=== PATIENT | female | born 1945 | race Caucasian/White ===

== ENCOUNTER → 2018-05-21 17:00 | Outpatient (CLI) | payer MEDICARE, OTHER, SELFPAY ==
[2018-05-21 17:56] LABS: Add Manual Diff / Slide Review NO; Eosinophils Percent Auto 2.4 % (2-4); Hematocrit 41.2 % (36-46); Hemoglobin 14.1 g/dL (12.0-16.0); Mean Corpuscular HGB Conc 34.2 % (30-36); Mean Corpuscular Hemoglobin 29.8 PG (26-34); Mean Corpuscular Volume 87.1 fL (80-100); Monocytes Percent Auto 7.7 % (3-14); Neutrophils Absolute Auto 6000 /uL (3000-5900); Neutrophils Percent Auto 61.9 % (50-75); Platelet Count 240 X10^3/uL (150-400); Red Blood Cell Count 4.72 X10^6/uL (4.0-5.2); Red Cell Distribution Width 13.8 % (11.6-14.8); White Blood Cell Count 9.7 X10^3/uL (4.5-11.0)
[2018-05-21 18:11] LABS: Alanine Aminotransferase 25 IU/L (9-52); Albumin 4.6 g/dL (3.5-5.0); Albumin Globulin Ratio 1.8 (1.0-2.8); Alkaline Phosphatase 80 U/L (38-126); Aspartate Aminotransferase 31 IU/L (14-36); Bilirubin Total 0.5 mg/dL (0.2-1.3); Blood Urea Nitrogen 14 mg/dL (7-17); Calcium 9.6 mg/dL (8.4-10.2); Carbon Dioxide 30 mmol/L (22-32); Chloride 103 mmol/L (98-107); Cholesterol 182 mg/dL (140-199); Estimated Glomerular Filt Rate > 60.0 mL/min (>60); Globulin 2.6 g/dL (1.7-4.1); Glucose 135 mg/dL (80-110); HDL Cholesterol 47 mg/dL (40-60); HEMOLYSIS < 15 (0-50); LDL Cholesterol Calculated 89 mg/dL (<100); Potassium 3.6 mmol/L (3.4-5.1); Sodium 145 mmol/L (137-145); Total Protein 7.2 g/dL (6.3-8.2); Triglycerides 228 mg/dL (35-150); Uric Acid 7.2 mg/dL (2.5-6.2)
[2018-05-21 18:40] LABS: Thyroid Stimulating Hormone 2.19 uIU/mL (0.47-4.68)
== END ==
PROVIDERS: Family Provider Internal Medicine; PCP Internal Medicine; Visit Provider Internal Medicine
DX: I10 Essential (primary) hypertension (principal); M79.673 Pain in unspecified foot
CPT/HCPCS: 36415; 80053; 80061; 84443; 84550; 85025

== ENCOUNTER → 2018-06-07 11:15 | Outpatient (CLI) | payer MEDICARE, OTHER, SELFPAY ==
[2018-06-07 12:04] LABS: Add Manual Diff / Slide Review NO; Basophils Percent Auto 0.9 % (0-2); Eosinophils Percent Auto 2.8 % (2-4); Hematocrit 40.6 % (36-46); Hemoglobin 14.1 g/dL (12.0-16.0); Lymphocytes Percent Auto 22.3 % (25-40); Mean Corpuscular HGB Conc 34.7 % (30-36); Mean Corpuscular Hemoglobin 29.8 PG (26-34); Mean Corpuscular Volume 85.8 fL (80-100); Monocytes Percent Auto 7.9 % (3-14); Neutrophils Absolute Auto 5900 /uL (3000-5900); Neutrophils Percent Auto 66.1 % (50-75); Platelet Count 238 X10^3/uL (150-400); Red Blood Cell Count 4.73 X10^6/uL (4.0-5.2); Red Cell Distribution Width 13.8 % (11.6-14.8); White Blood Cell Count 8.9 X10^3/uL (4.5-11.0)
[2018-06-07 12:17] LABS: Alanine Aminotransferase 36 IU/L (9-52); Albumin 4.7 g/dL (3.5-5.0); Albumin Globulin Ratio 1.9 (1.0-2.8); Alkaline Phosphatase 81 U/L (38-126); Aspartate Aminotransferase 33 IU/L (14-36); BUN Creatinine Ratio 17.5 (6-22); Bilirubin Total 0.7 mg/dL (0.2-1.3); Blood Urea Nitrogen 14 mg/dL (7-17); Calcium 9.8 mg/dL (8.4-10.2); Carbon Dioxide 32 mmol/L (22-32); Chloride 100 mmol/L (98-107); Cholesterol 196 mg/dL (140-199); Estimated Glomerular Filt Rate > 60.0 mL/min (>60); Globulin 2.5 g/dL (1.7-4.1); Glucose 107 mg/dL (80-110); HDL Cholesterol 49 mg/dL (40-60); HEMOLYSIS < 15 (0-50); LDL Cholesterol Calculated 112 mg/dL (<100); Potassium 3.5 mmol/L (3.4-5.1); Sodium 144 mmol/L (137-145); Total Protein 7.2 g/dL (6.3-8.2); Triglycerides 174 mg/dL (35-150)
[2018-06-07 12:46] LABS: Thyroid Stimulating Hormone 2.09 uIU/mL (0.47-4.68)
== END ==
PROVIDERS: Family Provider Internal Medicine; PCP Internal Medicine; Visit Provider Internal Medicine
DX: I10 Essential (primary) hypertension (principal)
CPT/HCPCS: 36415; 80053; 80061; 84443; 85025

== ENCOUNTER → 2019-08-10 14:18 | Outpatient (CLI) | payer MEDICARE, OTHER, SELFPAY ==
--- NOTE | 2019-08-10 | DI.US.S_ITS ---
PROCEDURE: US CAROTID DOPPLER BI INDICATIONS: RIGHT CAROTID BRUIT TECHNIQUE: Color and pulse Doppler interrogation was performed of both carotid systems, with image documentation and velocity measurements. COMPARISON: None. FINDINGS: Stenosis calculations are based on SRU (Society of Radiologists in Ultrasound) criteria. Right side: Brachial blood pressure: 150/81 mm Hg. Common carotid artery peak systolic velocity: 83 cm/sec. Internal carotid artery peak systolic velocity: 59 cm/sec. Internal carotid artery end diastolic velocity: 27 cm/sec. External carotid artery peak systolic velocity: 94 cm/sec. ICA/CCA peak systolic ratio: 0.7. Boland scale imaging description: Mild scattered plaque Percent internal carotid artery stenosis: Less than 50%. Vertebral artery: Flow direction is antegrade. Left side: Brachial blood pressure: 166/85 mm Hg. Common carotid artery peak systolic velocity: 70 cm/sec. Internal carotid artery peak systolic velocity: 82 cm/sec. Internal carotid artery end diastolic velocity: 27 cm/sec. External carotid artery peak systolic velocity: 76 cm/sec. ICA/CCA peak systolic ratio: 1.2. Boland scale imaging description: Mild scattered plaque. Left thyroid nodules. Percent internal carotid artery stenosis: Less than 50% stenosis. Vertebral artery: Flow direction is antegrade. IMPRESSION: 1. Less than 50% bilateral internal carotid artery stenosis. 2. Incidental finding of multiple thyroid nodules. When clinically feasible, recommend formal thyroid ultrasound. Dictated by: Jairo MARLEY Interpreted: Dinh Khan MD on 08/10/2019 at 15:47 Approved by: Dinh Khan M.D. on 08/10/2019 at 16:54
--- NOTE | 2019-08-10 | DI.MG.S_ITS ---
BILATERAL DIGITAL SCREENING MAMMOGRAM 3D/2D WITH CAD: 08/10/2019 CLINICAL: Routine screening. Family history of breast cancer. Comparison is made to exams dated: 03/25/2017 mammogram - [facility], 03/17/2015 mammogram, and 10/11/2013 mammogram - [facility]. There are scattered fibroglandular elements in both breasts. Current study was also evaluated with a Computer Aided Detection (CAD) system. No significant masses, calcifications, or other findings are seen in either breast. There has been no significant interval change. IMPRESSION: NEGATIVE There is no mammographic evidence of malignancy. A 1 year screening mammogram is recommended. This exam was interpreted at Station ID: [id number]. NOTE: For mammograms, a report in lay terms will be sent to the patient. Approximately 15% of breast malignancies will not be visualized mammographically. In the management of a palpable breast mass, a negative mammogram must not discourage biopsy of a clinically suspicious lesion. Electronically Signed By: Darius kidd/pj:08/10/2019 15:59:03 letter sent: Normal Exam ACR BI-RADS Category 1: Negative [id number]
== END ==
PROVIDERS: PCP Internal Medicine; Visit Provider Internal Medicine
DX: Z12.31 Encounter for screening mammogram for malignant neoplasm of breast (principal); Z80.3 Family history of malignant neoplasm of breast; M85.851 Other specified disorders of bone density and structure, right thigh; Z78.0 Asymptomatic menopausal state
CPT/HCPCS: 77063; 77067; 77080; 93880

== ENCOUNTER → 2019-08-14 07:12 | Outpatient (CLI) | payer MEDICARE, OTHER, SELFPAY ==
--- NOTE | 2019-08-14 | DI.US.S_ITS ---
PROCEDURE: US THYROID INDICATIONS: NODULES TECHNIQUE: Real-time scanning was performed of the thyroid gland, with image documentation. COMPARISON: None. FINDINGS: Right: Thyroid lobe measures 4.1 x 1.5 x 1.4 cm, and is homogeneous in echotexture. Left: Thyroid lobe measures 4.9 x 1.1 x 1.4 cm, and is homogenous in echotexture. Isthmus: 2.9 mm thick. Nodule number: #1 Location: Midpole of left thyroid lobe Size: 1.4 x 0.7 x 1.1 cm. Composition: Solid Echogenicity: Hypoechoic Shape: Wider than tall Margins: Smooth Echogenic foci: None Total points: 4 ACR TI-RADS category: 4 Nodule number: #2 Location: Upper pole of left thyroid lobe Size: 0.6 x 0.4 x 0.7 cm. Composition: Solid Echogenicity: Hypoechoic Shape: Wider than tall. Margins: Smooth Echogenic foci: None Total points: 4 ACR TI-RADS category: 4 Nodule number: #3 Location: Upper to mid pole of right thyroid lobe Size: 0.9 x 0.6 x 1 cm. Composition: Solid Echogenicity: Hypoechoic Shape: Wider than tall. Margins: Smooth Echogenic foci: None Total points: 4 ACR TI-RADS category: 4 IMPRESSION: 3 moderately suspicious nodules in bilateral thyroid lobes as above. Sonographic followup is recommended. ACR TI-RADS definitions and recommendations: TI-RADS 1 (benign): 0 points. FNA not needed. TI-RADS 2 (not suspicious): 2 points. FNA not needed. TI-RADS 3 (mildly suspicious): 3 points. * FNA if 2.5 cm or larger, follow up if 1.5 cm or larger (at 1, 3, and 5 years). TI-RADS 4 (moderately suspicious): 4-6 points. * FNA if 1.5 cm or larger, follow up if 1 cm or larger (at 1, 2, 3, and 5 years). TI-RADS 5 (highly suspicious): 7 points or more. * FNA if 1 cm or larger, follow up if 0.5 cm or larger (every year for 5 years). Dictated by: Mike Miner M.D. on 08/14/2019 at 12:36 Approved by: Mike Miner M.D. on 08/14/2019 at 12:39
== END ==
PROVIDERS: PCP Internal Medicine; Visit Provider Family Medicine
DX: E04.2 Nontoxic multinodular goiter (principal)
CPT/HCPCS: 76536

== ENCOUNTER → 2019-10-29 08:21 | Outpatient (CLI) | payer MEDICARE, OTHER, SELFPAY ==
--- NOTE | 2019-10-29 | DI.NM.S_ITS ---
PROCEDURE: NM JESSE PERF SPECT REST & STR Rest and exercise myocardial perfusion SPECT with gated imaging and ejection fraction RADIOPHARMACEUTICAL: 26.4 mCi Tc-99m sestamibi IV at rest and 25.5 mCi Tc-99m sestamibi IV at peak exercise. A [id number] was performed. INDICATIONS: ELECTROCARDIOGRAM TECHNIQUE: Radiopharmaceutical was injected at peak stress test, and also at rest. SPECT images were obtained. SPECT myocardial perfusion images were displayed in short axis, horizontal long axis, and vertical long axis views. Gated images were reviewed using [employer] software. COMPARISON: None. CARDIAC STRESS: A standard Pj treadmill exercise tolerance test was performed by the patient under the supervision of an attending staff. The patient exercised for 5 minutes and 28 seconds; functional aerobic impairment (MARTIN) is 0%. Hemodynamic data: There is normal blood pressure and heart rate response to exercise stress. Patient achieved 111% of maximum predicted heart rate at peak exercise. Symptoms: Patient denied chest pain during exercise but developed dyspnea during stage II. EKG: Resting ECG with small Q waves in inferior and anterolateral leads. Up to 1.5 mm horizontal and down sloping ST depression in the same leads at peak exercise. Occasional PVCs in recovery. FINDINGS: Raw data: There is good myocardial labeling by radiotracer. No significant motion artifacts. Jvbi-qn-tdijk ratio is 0.37 (normal is less than 0.38 for sestamibi tracer, and less than 0.50 for thallium tracer). Left ventricle function: Gated images demonstrate normal left ventricle wall thickening. No segmental wall motion abnormality. No transient ischemic dilation; TID is 0.69 (normal less than 1.3). The left ventricle resting end-diastolic volume is 98 mL. Left ventricle stress ejection fraction is >75% ; normal values are above 45%. Myocardial perfusion: There is a very small, mild perfusion defect on apical anteroseptal wall on rest and stress that completely resolves on prone imaging. Otherwise normal distribution of activity in the left ventricular myocardium. No fixed or reversible perfusion defects. IMPRESSION: -Normal perfusion study with no evidence of ischemia or scar. -Average exercise capacity. -This is unchanged compared to the obtained records from [place]. -ECG findings were observed on the prior study as well. -Overall this is a low risk study. Dictated by: Cachorro Chua M.D. on 10/30/2019 at 17:32 Approved by: Cachorro Chua M.D. on 10/30/2019 at 17:46
== END ==
PROVIDERS: PCP Internal Medicine; Referring Provider Internal Medicine; Visit Provider Internal Medicine
DX: R94.31 Abnormal electrocardiogram [ECG] [EKG] (principal); I10 Essential (primary) hypertension
CPT/HCPCS: 78452; 93017; A9502

== ENCOUNTER → 2019-11-13 08:03 | Outpatient (CLI) | payer MEDICARE, OTHER, SELFPAY ==
--- NOTE | 2019-11-13 | DI.ECHO.S_ITS ---
[facility] +---------+ : : [address] : : : : [id number] : : : : Phone: [phone] Echocardiogram Report + + :Name: CHONG WONG Study Date: 11/13/2019 Height: 66 in : :[facility] Weight: 184 lb : : Gender: Female BSA: 1.9 m2 : :: 1945 Age: 74 yrs BP: 150/82 mmHg: :Reason For Study: ABNL EKG : : Performed By: Juno Recio : :Referring: KATHI SUAREZ : + + Interpretation Summary Sinus bradycardia. Heart rate is 49-58 bpm. Normal LV size, wall thickness, wall motion and LV systolic function. EF is 60-65%. Severe LA enlargement; otherwise normal chamber sizes. No significant valvular abnormalities. No prior study available for comparison. Procedure: A two-dimensional transthoracic echocardiogram with color flow and Doppler was performed. The study quality was technically adequate. There is no prior echocardiogram noted for this patient. The patient was in normal sinus rhythm during the exam. The patient was bradycardic with a heart rate of 49-58 beats per minute. Left Ventricle: The left ventricle is normal in size. Left ventricular wall thickness is borderline increased. The ejection fraction is estimated to be 60-65%. There are no focal wall motion abnormalities. Right Ventricle: The right ventricle is normal in size and function. Atria: The left atrium is severely dilated. Right atrial size is normal. The interatrial septum is intact with no evidence for an atrial septal defect. Mitral Valve: The mitral valve is normal in structure and function. There is trace mitral regurgitation. Aortic Valve: The aortic valve is trileaflet. The aortic valve opens well. No aortic regurgitation is present. Tricuspid Valve: The tricuspid valve is normal in structure and function. There is mild tricuspid regurgitation. The right ventricular systolic pressure is estimated to be at least 27 mmHg based on an estimated right atrial pressure of 3 mm Hg. Pulmonic Valve: The pulmonic valve is not well seen, but is grossly normal. There is mild pulmonic regurgitation. Great Vessels: The aortic root is normal size. The dimensions of the ascending aorta are normal. The pulmonary artery is normal size. The IVC is of normal diameter and collapses greater than 50% with a sniff. This suggests a low right atrial pressure of 3 mm Hg. Pericardium/ Pleura There is no pericardial effusion. There is no pleural effusion. MMode/2D Measurements & Calculations LVIDd: 4.2 cm LVOT diam: 2.1 cm LVIDs: 2.3 cm Ao root diam: 3.2 cm FS: 45.2 % Aortic Jxn: 2.9 cm EPSS: 0.23 cm asc Aorta Diam: 3.2 cm IVSd: 0.92 cm Ao Arch Diam (Prox Trans): 2.5 cm LVPWd: 0.83 cm LV aguayo. diameter/BSA (cm/m^2): 2.2 LV sys. diameter/BSA (cm/m^2): 1.2 LA dimension: 3.6 cm RA long axis: 5.0 cm LA A2 area: 27.6 cm2 RA area: 16.0 cm2 LA A4 area: 29.1 cm2 RA vol: 43.5 ml LA length (vol): 6.0 cm RA : 22.6 ml/m2 LA vol: 112.8 ml IVC diam: 2.0 cm LA vol index: 58.4 ml/m2 Doppler Measurements & Calculations Ao V2 max: 150.0 cm/sec LVOT Max Mathew: 130.2 cm/sec Ao V2 mean: 107.6 cm/sec LV V1 max P.8 mmHg Ao max P.0 mmHg LV V1 VTI: 29.2 cm Ao mean P.0 mmHg LUIZ(I,D): 2.6 cm2 Ao V2 VTI: 38.4 cm LUIZ(V,D): 3.0 cm2 sev ratio: 0.76 LUIZ indexed to BSA (cm^2/m^2): 1.4 MV E max mathew: 92.0 cm/sec TR max mathew: 242.7 cm/sec MV A max mathew: 45.8 cm/sec TR max P.6 mmHg MV E/A: 2.0 PA V2 max: 76.3 cm/sec Med Peak E' Mathew: 3.9 cm/sec PA V2 mean: 60.2 cm/sec E/E' med: 23.6 PA mean P.5 mmHg Lat Peak E' Mathew: 6.5 cm/sec PA pr(Accel): 19.8 mmHg E/E' lat: 14.1 E/e' average: 18.9 MV dec time: 0.13 sec SV(LVOT): 100.4 ml Electronically signed by: Eleanor Lin M.D. on Reading Physician:11/13/2019 10:41 PM
== END ==
PROVIDERS: PCP Internal Medicine; Referring Provider Internal Medicine; Visit Provider Internal Medicine
DX: I07.1 Rheumatic tricuspid insufficiency (principal); R94.31 Abnormal electrocardiogram [ECG] [EKG]
CPT/HCPCS: 93306

== ENCOUNTER → 2020-08-20 14:27 | Outpatient (CLI) | payer MEDICARE, OTHER, SELFPAY ==
--- NOTE | 2020-08-20 | DI.MG.S_ITS ---
BILATERAL DIGITAL SCREENING MAMMOGRAM 3D/2D WITH CAD: 08/20/2020 CLINICAL: Routine screening. Family history of breast cancer. Comparison is made to exams dated: 08/10/2019 mammogram, 03/25/2017 mammogram - [facility], and 03/17/2015 mammogram - [facility]. There are scattered fibroglandular elements in both breasts. Current study was also evaluated with a Computer Aided Detection (CAD) system. No significant masses, calcifications, or other findings are seen in either breast. There has been no significant interval change. IMPRESSION: NEGATIVE There is no mammographic evidence of malignancy. A 1 year screening mammogram is recommended. This exam was interpreted at Station ID: [id number]. NOTE: For mammograms, a report in lay terms will be sent to the patient. Approximately 15% of breast malignancies will not be visualized mammographically. In the management of a palpable breast mass, a negative mammogram must not discourage biopsy of a clinically suspicious lesion. Electronically Signed By: Najma jacobson/pj:08/22/2020 16:30:35 letter sent: Normal Exam ACR BI-RADS Category 1: Negative 3341F
== END ==
PROVIDERS: PCP Internal Medicine; Referring Provider Internal Medicine; Visit Provider Internal Medicine
DX: Z12.31 Encounter for screening mammogram for malignant neoplasm of breast (principal); Z80.3 Family history of malignant neoplasm of breast
CPT/HCPCS: 77063; 77067

== ENCOUNTER → 2021-01-06 09:45 | Outpatient (CLI) | payer MEDICARE, OTHER, SELFPAY ==
--- NOTE | 2021-01-06 | DI.US.S_ITS ---
PROCEDURE: US THYROID INDICATIONS: Nontoxic multinodular goiter TECHNIQUE: Real-time scanning was performed of the thyroid gland, with image documentation. COMPARISON: [facility], US, US THYROID, 08/14/2019, 7:38. FINDINGS: Right: Thyroid lobe measures 5.5 x 1.6 x 1.8 cm, and is homogeneous in echotexture. Left: Thyroid lobe measures 4.9 x 1.5 x 1.4 cm, and is homogenous in echotexture. Isthmus: Two mm thick. Nodule number: 1 Location: Left midpole Size: 1.6 x 1.2 x 0.9 cm. 1.4 x 0.7 x 1.1 cm. Composition: Predominantly solid Echogenicity: Hypoechoic Shape: wider than tall. Margins: Smooth Echogenic foci: Punctate Total points: Seven ACR TI-RADS category: Highly suspicious Nodule number: 2 Location: Left superior pole Size: 0.7 x 0.6 x 0.5 cm. Previously 0.7 x 0.6 x 0.4 Composition: Spongiform Echogenicity: Hypoechoic Shape: wider than tall. Margins: Smooth Echogenic foci: Non Total points: Two ACR TI-RADS category: Not suspicious Nodule number: 3 Location: Right superior pole Size: 1.1 x 1.0 x 0.6 cm. Previously 1.0 x 0.9 x 0.6 Composition: Solid Echogenicity: Hypoechoic Shape: wider than tall. Margins: Smooth Echogenic foci: No Total points: For ACR TI-RADS category: Moderately suspicious Nodule number: 4 Location: Right midpole Size: 0.5 x 0.5 x 0.3 cm. Previously 0.4 cm. Composition: Predominantly solid Echogenicity: Hypoechoic Shape: wider than tall. Margins: Smooth Echogenic foci: No Total points: For ACR TI-RADS category: Moderately suspicious IMPRESSION: 1. 4 discrete thyroid nodules, the largest of which in the left mid lobe has slightly increased in size since the prior study and warrants fine-needle aspiration. (FNA nodule 1.). ACR TI-RADS definitions and recommendations: TI-RADS 1 (benign): 0 points. FNA not needed. TI-RADS 2 (not suspicious): 2 points. FNA not needed. TI-RADS 3 (mildly suspicious): 3 points. * FNA if 2.5 cm or larger, follow up if 1.5 cm or larger (at 1, 3, and 5 years). TI-RADS 4 (moderately suspicious): 4-6 points. * FNA if 1.5 cm or larger, follow up if 1 cm or larger (at 1, 2, 3, and 5 years). TI-RADS 5 (highly suspicious): 7 points or more. * FNA if 1 cm or larger, follow up if 0.5 cm or larger (every year for 5 years). Dictated by: Viktoria Beck M.D. on 01/06/2021 at 16:54 Approved by: Viktoria Beck M.D. on 01/06/2021 at 17:01
== END ==
PROVIDERS: PCP Internal Medicine; Referring Provider Internal Medicine; Visit Provider Internal Medicine
DX: E04.2 Nontoxic multinodular goiter (principal)
CPT/HCPCS: 76536

== ENCOUNTER → 2021-01-18 07:50 | Outpatient (CLI) | payer MEDICARE, OTHER, SELFPAY ==
--- NOTE | 2021-01-18 | DI.US.S_ITS ---
PROCEDURE: US FINE NEEDLE ASPIRATION INDICATIONS: Nontoxic multinodular goiter TECHNIQUE: The indications, alternatives, benefits, risks, and complications of the procedure were explained to the patient. Written informed consent was obtained and placed in the chart. The thyroid region was examined sonographically and a site was chosen for ultrasound guided percutaneous sampling. The skin was prepared and draped in the usual fashion, and anesthetized with 1% lidocaine infiltrated from the skin down to the thyroid gland. Multiple passes were then performed, with contents emptied into an appropriate pathology specimen container. A bandage was applied to the area of access at completion of the study. COMPARISON: None. FINDINGS: Location(s) of lesion(s) sampled: Left mid lobe Dale: 22 and 25 gauge hypodermic needles. Number of passes: 11 Medications: 1% lidocaine for local anaesthesia. Complications: None. IMPRESSION: Successful ultrasound-guided thyroid nodule fine needle aspiration, with cytology results pending. Please see chart below for management recommendations based on cytology results. Grahn System ReportingRecommendationsNon-diagnostic* Repeat US-guided FNA, with on-site cytology evaluation if possible. * Repeated non-diagnostic nodules without high suspicion US features: close observation vs surgical consult. * Consider surgery if nodule has high suspicion US features, grows >20% in 2 dimensions on followup, or patient has clinical risk factors for malignancy. Benign* If nodule has high suspicion US features: repeat US and FNA within 12 months. * If nodule has low to intermediate suspicion US features: repeat US at 12-24 months. If nodule grows (20% increase in at least 2 dimensions, with minimal increase of 2 mm or >50% change in volume), or development of new suspicious US features, then repeat FNA or continue followup. * If nodule has very low suspicion US features: followup US at >24 months. Atypia of undetermined significance, follicular lesion of undetermined significanceRepeat FNA, molecular testing, followup US, or surgical consult.Follicular neoplasm, suspicious for follicular neoplasmSurgical consult; also consider molecular testing. Suspicious for malignancySurgical consult.MalignantSurgical consult. Dictated by: Dinh Khan M.D. on 01/18/2021 at 11:39 Approved by: Dinh Khan M.D. on 01/18/2021 at 11:43
--- NOTE | 2021-01-18 | PATH_ITS ---
Note [facility] Accession Number: [id number] TESTS RESULT FLAG UNITS REF RANGE LAB Clinician Provided Cytology Information No. of containers..01 Previously Prepared Cytology Slide No. of containers..01 Other (Miscellaneous) 01 LEFT THYROID MID NODULE DIAGNOSIS: LEFT THYROID MID NODULE INCONCLUSIVE. BETHESDA CATEGORY III. ATYPIA OF UNDETERMINED SIGNIFICANCE. SOME CROWDED GROUPS ARE OBSCURED BY COLLOID. SOME FOLLICULAR CELL GROUPS DEMONSTRATE HURTHLE CELL FEATURES. Comment: Sparsely cellular aspirate comprised of follicular cells with architectural and mild cytologic atypia. Molecular testing is pending; results will be reported separately. Pathologist ICD10: 02 R89.6 01 Right: Thyroid lobe measures 5.5 x 1.6 x 1 *8 cm, and is homogeneous in echotexture. Left: Thyroid lobe measures 4.9 x 1.5 x 1.4 cm, and is homogenous in echotexture. Isthmus: Two mm thick. 02 Vidya Ivey MD, Pathologist NPI- [id number] 01 Abdirahman Robbins, High Speed Printer Operator ([facility]) 01 30 CC, COLORLESS, CLEAR RECIEVED: IN CYTOLYT WITH 11 ALCOHOL FIXED AND 10 QUICK STAINED SLIDES ALSO 1 RNA VIAL WAS RECEIVED FOR FURTHER TESTING. /VDU 01/19/2021 0640 Local FLAG LEGEND: L-Low Normal,H-High Normal,LL-Alert Low,HH-Alert High <-Panic Low,>-Panic High,A-Abnormal,AA-Critical Abnormal Performed at: 01 =[facility] [address], [place] [address] Favian Vanegas MD, 02 [facility] [address] [place] [id number] Cristine Archer MD, Performed at: 01 [facility] [address], [place], [place] [id number] MD Favian Vanegas MD Phone: [phone]
== END ==
PROVIDERS: PCP Internal Medicine; Referring Provider Internal Medicine; Visit Provider Internal Medicine
DX: E04.2 Nontoxic multinodular goiter (principal)
CPT/HCPCS: 10005

== ENCOUNTER 2021-06-01 01:21 | Emergency (ER) | payer MEDICARE, OTHER, SELFPAY ==
[2021-06-01 01:39] VITALS: BP 150/67; PULSE 71; RESP 16; TEMP 36.6; O2SAT 98; BMI 29.5
[2021-06-01 01:46] LABS: Appearance Urine UA SL CLOUDY; Bilirubin Urine UA NEGATIVE (NEGATIVE); Color Urine UA RED; Glucose Urine UA TRACE g/dL (Negative); Ketones Urine UA NEGATIVE (NEGATIVE); Leukocyte Esterase Urine UA 1+ (NEGATIVE); Nitrite Urine UA POSITIVE (Negative); Occult Blood Urine UA 3+ (Negative); Protein Urine UA 3+ (Negative); Specific Gravity Urine UA <=1.005 (1.000-1.035); Urobilinogen Urine UA 0.2 E.U./dL (0.2)
[2021-06-01 01:47] LABS: RBC Urine 30-100/HPF (0-5/HPF); Squamous Epithelial Cell Urine 0-1 /HPF (0-5/HPF); WBC Urine 30-100/HPF (0-5/HPF); pH Urine UA 5.5 (4.5-8.0)
[2021-06-01 01:48] LABS: Bacteria Urine Moderate (10-30); Culture Indicated Urine Specimen Cultured
--- NOTE | 2021-06-01 01:52 | ED_ITS ---
HPI - Female Genitourinary General Chief complaint: Urogenital-Female Stated complaint: blood in urine, thinks uti Time Seen by Provider: 06/01/21 01:45 Source: patient Mode of arrival: Ambulatory Limitations: no limitations History of Present Illness HPI Narrative: Patient complains of urinary urgency frequency and dysuria starting earlier tonight. No fever chills. No back pain. No nausea or vomiting. Patient states feels like another UTI similar to 30 years ago. Now with hematuria. No back pain. No flank pain. Related Data Home Medications Medication Instructions Recorded Confirmed lisinopril 20 mg tablet 20 mg PO DAILY 02/09/21 02/09/21 multivitamin 1 tab PO DAILY 02/09/21 02/09/21 Previous Rx's Medication Instructions Recorded atenolol 50 mg-chlorthalidone 25 0.5 tab PO QAM #135 tab 06/10/18 mg tablet nitrofurantoin 100 mg PO BID #14 cap 06/01/21 monohydrate/macrocrystals 100 mg capsule (Macrobid) phenazopyridine 100 mg tablet 100 mg PO TID PRN #6 tab 06/01/21 (Pyridium) Allergies Allergy/AdvReac Type Severity Reaction Status Date / Time Sulfa (Sulfonamide Allergy Intermediate HIVES Verified 02/09/21 14:12 Antibiotics) [SULFA (SULFONAMIDE ANTIBIOTICS)] Review of Systems Review of Systems Narrative: GENERAL: Denies chills, fatigue, malaise, fever, sweats. HEENT: Denies sinus pain, ear pain, sore throat RESPIRATORY: Denies dyspnea, cough CARDIOVASCULAR: Denies chest pain, palpitations GASTROINTESTINAL: Denies nausea, vomiting, abdominal pain : Complaints of urgency,dysuria, frequency, hematuria MUSCULOSKELETAL: denies muscle or bony pain SKIN: Denies rash, skin lesions NEUROLOGIC: Denies weakness, numbness ROS Unobtainable: All systems reviewed & are unremarkable except as noted in HPI and below Patient History Medical History Hypertension Surgical History Anesthesia History of knee replacement (10/05/13) History of tonsillectomy (~1966) Hx of lumpectomy Family History Father Cancer Hypertension Mother Cancer Grandmother Cancer Brother Hypertension Sister Breast cancer Substance Use Type: does not use Exam Narrative Exam Narrative: GENERAL: in no distress, not toxic not dyspneic HEAD: Normocephalic. CARDIOVASCULAR: Regular rate and rhythm without murmurs RESPIRATORY: Clear to auscultation. Breath sounds equal bilaterally. No wheezes, rales, or rhonchi. GASTROINTESTINAL: Abdomen soft, non-tender, no suprapubic tenderness, no peritoneal signs, bowel sounds present EXTREMITIES: No gross deformities. BACK: No flank tenderness. No CVA tenderness NEURO: AOx4. SKIN: Warm and dry PSYCH: Not anxious, is cooperative Initial Vital Signs Initial Vital Signs: Vital Signs Temperature 98 F 06/01/21 01:39 Pulse Rate 71 06/01/21 01:39 Respiratory Rate 16 06/01/21 01:39 Blood Pressure 150/67 H 06/01/21 01:39 Pulse Oximetry 98 06/01/21 01:39 Course Course Course Narrative: No new issues during course of stay Orders Ordered: ED Orders 06/01/21 01:41 Urinalysis and Microscopic Stat Urine Culture Stat Discontinued Medications Nitrofurantoin Macrocrystals (Nitrofurantoin Er 100 Mg Capsule) 100 mg PO NOW ONE Stop: 06/01/21 01:52 Last Admin: 06/01/21 02:17 Dose: 100 mg Documented by: HERNANDO Phenazopyridine HCl (Phenazopyridine 100 Mg Tablet) 200 mg PO NOW ONE Stop: 06/01/21 01:52 Last Admin: 06/01/21 02:16 Dose: 200 mg Documented by: HERNANDO Reevaluation(s) Reevaluation #1: Reviewed results with patient. Agrees with treatment plan and follow-up. Time: 01:57 Vital Signs Vital signs: Vital Signs - 8 hr 06/01/21 01:39 06/01/21 02:50 Temperature 98 F Pulse Rate 71 61 Respiratory Rate 16 17 Blood Pressure 150/67 H 118/62 Pulse Oximetry 98 97 MDM - Female Genitourinary Differential Diagnosis Differential diagnosis: Likely urinary tract infection and cystitis Lab Data Labs: Lab Results 06/01/21 Range/Units 01:41 Urine Color Red Urine Appearance Sl cloudy Urine pH 5.5 (4.5-8.0) Ur Specific [place] <=1.005 (1.000-1.035) Urine Protein 3+ H (Negative) Urine Glucose (UA) Trace H (Negative) g/dL Urine Ketones Negative (NEGATIVE) Urine Occult Blood 3+ H (Negative) Urine Nitrate Positive H (Negative) Urine Bilirubin Negative (NEGATIVE) Urine Urobilinogen 0.2 (0.2) E.U./dL Ur Leukocyte Esterase 1+ H (NEGATIVE) Urine RBC 30-100/hpf H (0-5/HPF) Urine WBC 30-100/hpf H (0-5/HPF) Ur Squamous Epith Cells 0-1 /hpf (0-5/HPF) Urine Bacteria Moderate (10-30) H (None) Ur Culture Indicated? Specimen cultured MDM Narrative Medical decision making narrative: Appropriate for discharge home. Laboratory studies and exam reassuring. No fever here. No imaging indicated. Return precautions reviewed with patient. She agrees with treatment plan and follow- up. Not toxic at discharge. Discharge Plan Departure Patient Disposition: Home Clinical Impression: Acute UTI Instructions: DI for Urinary Tract Infection (UTI) Activity Restrictions/Additional Instructions: Keep well hydrated. See family doctor in a week for recheck. Return if worse or any questions concerns or any back pain or fever chills or nausea or vomiting. Prescriptions: New nitrofurantoin monohyd/m-cryst [Macrobid] 100 mg capsule 100 mg PO BID Qty: 14 RF: 0 phenazopyridine [Pyridium] 100 mg tablet 100 mg PO TID PRN (Reason: pain) Qty: 6 RF: 0 No Action atenolol-chlorthalidone 50-25 mg tablet 0.5 tab PO QAM Qty: 135 RF: 3 lisinopril 20 mg tablet 20 mg PO DAILY RF: 0 multivitamin Tablet 1 tab PO DAILY RF: 0 Referrals: Priyanka Medina ARNP [Primary Care Provider] -
[2021-06-01] MEDS: PHENAZOPYRIDINE 100 MG TABLET 200 MG PO (02:16)
[2021-06-01] MEDS: NITROFURANTOIN ER 100 MG CAPSULE PO (02:17)
[2021-06-01 02:50] VITALS: BP 118/62; PULSE 61; RESP 17; O2SAT 97
== END 2021-06-01 02:51 | disposition home or self-care (01) ==
PROVIDERS: Emergency Provider Emergency Medicine; PCP Internal Medicine
DX: N39.0 Urinary tract infection, site not specified (principal)
CPT/HCPCS: 81001; 87077; 87086; 87186; 99283

== ENCOUNTER → 2021-09-30 13:35 | Outpatient (CLI) | payer MEDICARE, OTHER, SELFPAY ==
--- NOTE | 2021-09-30 | DI.MG.S_ITS ---
BILATERAL DIGITAL SCREENING MAMMOGRAM 3D/2D WITH CAD: 09/30/2021 CLINICAL: Routine screening. Family history of breast cancer. Comparison is made to exams dated: 08/20/2020 mammogram, 08/10/2019 mammogram, and 03/25/2017 mammogram - [facility]. There are scattered fibroglandular elements in both breasts. Current study was also evaluated with a Computer Aided Detection (CAD) system. No significant masses, calcifications, or other findings are seen in either breast. There has been no significant interval change. IMPRESSION: NEGATIVE There is no mammographic evidence of malignancy. A 1 year screening mammogram is recommended. This exam was interpreted at Station ID: [id number]. NOTE: For mammograms, a report in lay terms will be sent to the patient. Approximately 15% of breast malignancies will not be visualized mammographically. In the management of a palpable breast mass, a negative mammogram must not discourage biopsy of a clinically suspicious lesion. Electronically Signed By: Jessee [email or web address]:10/02/2021 08:33:12 letter sent: Normal Exam ACR BI-RADS Category 1: Negative [id number]
== END ==
PROVIDERS: PCP Internal Medicine; Referring Provider Internal Medicine; Visit Provider Internal Medicine
DX: Z12.31 Encounter for screening mammogram for malignant neoplasm of breast (principal); Z80.3 Family history of malignant neoplasm of breast
CPT/HCPCS: 77063; 77067

== ENCOUNTER → 2021-10-16 11:14 | Outpatient (CLI) | payer MEDICARE, OTHER, SELFPAY ==
--- NOTE | 2021-10-16 | DI.RAD.S_ITS ---
PROCEDURE: XR DEXA AXIAL SKELETON INDICATIONS: Asymptomatic menopausal state COMPARISON: [facility], CR, XR DEXA AXIAL SKELETON, 08/10/2019, 15:33. FINDINGS: This blank DEXA report has been sent in error by the PACS system. The correct and complete report will be forthcoming in 1-2 days. Thank you for your patience and understanding. Dictated by: Yi Bill MD, PhD on 10/16/2021 at 16:26 Approved by: Yi Bill MD, PhD on 10/16/2021 at 16:26
== END ==
PROVIDERS: PCP Internal Medicine; Referring Provider Internal Medicine; Visit Provider Internal Medicine
DX: Z78.0 Asymptomatic menopausal state (principal); M85.852 Other specified disorders of bone density and structure, left thigh
CPT/HCPCS: 77080